=== PATIENT | male | born 1975 | race Caucasian/White ===

== ENCOUNTER 2025-07-25 08:59 | Emergency (ER) | payer BC, MEDICARE, SELFPAY ==
[2025-07-25 09:03] VITALS: PULSE 74; TEMP 36.6; O2SAT 100; BMI 32.9
[2025-07-25 09:04] VITALS: BP 141/98; PULSE 78; TEMP 36.6; O2SAT 100; BMI 27.7
--- NOTE | 2025-07-25 09:09 | CT_ITS ---
The [address] [address] Patient Name: KAYODE CHEUNG MRN: [id number] date: 1975 Sex: M Assigned Patient Location: ED.MAIN Current Patient Location: ED.MAIN Accession/Order Number: [id number] Exam Date: 07/25/2025 09:40 Report Date: 07/25/2025 10:30 At the request of: ROBINA APODACA MD Procedure: CT abdomen pelvis wo con CT abdomen pelvis wo con 07/25/2025 9:46 AM SIGNS AND SYMPTOMS: ^left flank pain, r/o stone TECHNIQUE: Multidetector ct axial images of the abdomen and pelvis were obtained without IV contrast. Multiplanar reformats were performed and reviewed to further define anatomy and possible pathology. CT was performed with one or more of the following dose reduction techniques: Automated exposure control, adjustment of the mA and/or kV according to patient size, or use of iterative reconstruction technique. COMPARISON: None. FINDINGS: Lower Chest: There is a small pericardial effusion. ABDOMEN: Liver: Within normal limits. Bile Ducts: Normal caliber. Gallbladder: No calcified gallstones. Normal caliber wall. Pancreas: Within normal limits. Spleen: Within normal limits. Adrenals: Within normal limits. Kidneys: Nonobstructing stones are noted in the renal collecting systems measuring 4 mm in greatest dimension on the left and 3 mm in greatest dimension on the right. There is mild left-sided hydronephrosis. Pelvis: Reproductive Organs: No pelvic masses. Ureters: There is a 4 mm proximal left ureteral stone. Bladder: Within normal limits. Bowel: There are uncomplicated diverticula. There is a normal appendix in the right lower quadrant. Mesenteric Lymph Nodes: No enlarged mesenteric lymph nodes. Peritoneum: No ascites or free air, no fluid collection. Vessels: Atherosclerotic changes are noted in the abdominal aorta. Retroperitoneum: Within normal limits. Abdominal Wall: Within normal limits. Bones: Degenerative changes are noted in the thoracic and lumbar spine, hips, and sacral iliac joints. CT/CT abdomen pelvis wo con IMPRESSION: There is a 4 mm proximal left ureteral stone contributing to mild left-sided hydronephrosis. Additional nonobstructing renal stones are noted as above. Uncomplicated colonic diverticula are noted. Impression dictated by: Rock Pedraza M.D. 07/25/2025 10:30 AM Dictation Location: [place] [address] Electronically authenticated by: [id number] Y Date: 07/25/2025 10:30
[2025-07-25] MEDS: MORPHINE SULFATE 4 MG/ML VIAL IV ×2 (09:14→09:25)
[2025-07-25 09:22] LABS: Hematocrit 45.4 % (42.0-54.0); Hemoglobin 15.9 g/dL (14.0-18.0); Immature Granulocytes Abs Auto 0.05 10^3/uL (0.00-0.03); Immature Granulocytes Pct Auto 0.4 % (0.0-0.5); Lymphocytes Absolute Auto 3.5 10^3/uL (1.2-3.8); Mean Corpuscular HGB Conc 35.0 g/dL (29.9-35.2); Mean Corpuscular Hemoglobin 31.4 pg (25.9-34.0); Mean Corpuscular Volume 89.5 fL (80.0-94.0); Platelet Count 305 10^3/uL (150-450); Red Blood Count 5.07 10^6/uL (4.70-6.10); White Blood Count 13.8 10^3/uL (4.0-11.0)
--- NOTE | 2025-07-25 09:24 | ED.GENADUL1 ---
HPI HPI - General Adult General Chief complaint: Abdominal Pain Stated complaint: L FLANK PAIN Time Seen by Provider: 07/25/25 09:09 Source: patient Mode of arrival: Wheelchair History of Present Illness HPI narrative: 50-year-old male presents for left flank pain. He had a small amount of pain last night and then it went away but when he woke up today he had severe pain and now the pain is in the flank and left lower quadrant of his abdomen. He has had kidney stones before and it feels similar. The pain is severe and he is nauseous. No gross hematuria or injury. Related Data Home Medications ?Medication ?Instructions ?Recorded ?Confirmed atorvastatin 20 mg tablet mg 07/25/25 brimonidine 0.2 % eye drops drp ophthalmic (eye) 07/25/25 dorzolamide 22.3 mg-timolol 6.8 ophthalmic (eye) 07/25/25 mg/mL eye drops gabapentin 400 mg capsule mg 07/25/25 galcanezumab-gnlm 120 mg/mL mg subcut 07/25/25 subcutaneous pen injector (Emgality Pen) latanoprost 0.005 % eye drops drp ophthalmic (eye) 07/25/25 lisinopril 2.5 mg tablet mg 07/25/25 metformin 500 mg tablet,extended mg PO 07/25/25 release 24 hr tirzepatide 5 mg/0.5 mL mg subcut 07/25/25 subcutaneous pen injector (Mounjaro) Previous Rx's ?Medication ?Instructions ?Recorded ondansetron 4 mg disintegrating 4 mg PO Q6H PRN nausea and 07/25/25 tablet vomiting #20 tabs oxycodone-acetaminophen 5 mg-325 1 tab PO Q6H PRN pain 5 days #20 07/25/25 mg tablet (Percocet) tabs tamsulosin 0.4 mg capsule (Flomax) 0.4 mg PO DAILY #7 caps 07/25/25 Allergies Allergy/AdvReac Type Severity Reaction Status Date / Time No Known Drug Allergies Allergy Verified 07/25/25 09:03 Opioid HPI Opioid Management Most Recent Opioid Data: Last DEC Pain Assessment Today, 09:14 Review of Systems ROS Narrative A ten point review of systems is negative except as noted above. Exam Narrative Exam Narrative: Nurses note and vital signs reviewed General:The patient appears uncomfortable. He is moving around on the cart. Skin:Warm, dry, no pallor noted.There is no rash noted. Head:Normocephalic, atraumatic Eye: Normal conjunctiva, no drainage Ears, Nose, Mouth, and Throat: oral mucosa is moist. Nares patent. Cardiovascular:Regular Rate and Rhythm Respiratory:Patient is in no distress, no accessory muscle use, lungs are clear to auscultation, no wheezing, rales or rhonchi Back:non-tender, no CVA tenderness bilaterally to percussion. GI: Soft and nontender Musculoskeletal: The patient has no evidence of calf tenderness, no pitting edema, symmetrical pulses noted bilaterally Neurological:A&O, normal speech Psychiatric:Cooperative Constitutional Vital Signs, click to edit/add: Last Vital Signs Temp 97.8 F 07/25/25 09:04 Pulse 78 07/25/25 09:04 Resp 22 H 07/25/25 09:04 BP 141/98 H 07/25/25 09:04 Pulse Ox 100 07/25/25 09:04 O2 Del Method Room Air 07/25/25 09:04 Course Vital Signs Vital signs: Vital Signs Temperature 97.8 F 07/25/25 09:03 Pulse Rate 74 07/25/25 09:03 Respiratory Rate 22 H 07/25/25 09:03 Pulse Oximetry 100 07/25/25 09:03 Temperature 97.8 F 07/25/25 09:04 Pulse Rate 78 07/25/25 09:04 Respiratory Rate 22 H 07/25/25 09:04 Blood Pressure 141/98 H 07/25/25 09:04 Pulse Oximetry 100 07/25/25 09:04 Oxygen Delivery Method Room Air 07/25/25 09:04 Medical Decision Making MDM Narrative Medical decision making narrative: 4 mm mid ureteral left kidney stone is identified. He is feeling improved after being given morphine and Dilaudid and Zofran. He is comfortable being discharged and he is discharged home on Percocet and Zofran and Flomax. He will follow-up with his urologist in his home area. Treatment diagnosis and follow-up were discussed with the patient. Differential Diagnosis Differential Diagnosis: Kidney stone, muscle strain, AAA Lab Data Lab results reviewed: Yes I reviewed the patient's lab results Labs: Lab Results 07/25/25 07/25/25 Range/Units 09:10 10:05 WBC 13.8 H (4.0-11.0) 10^3/uL RBC 5.07 (4.70-6.10) 10^6/uL Hgb 15.9 (14.0-18.0) g/dL Hct 45.4 (42.0-54.0) % MCV 89.5 (80.0-94.0) fL MCH 31.4 (25.9-34.0) pg MCHC 35.0 (29.9-35.2) g/dL RDW 12.7 (11.0-15.0) % Plt Count 305 (150-450) 10^3/uL MPV 10.2 (9.5-13.5) fL Neut % (Auto) 60.0 (43.0-75.0) % Lymph % (Auto) 25.3 (20.5-60.0) % Drew % (Auto) 9.8 (1.7-12.0) % Eos % (Auto) 3.7 (0.9-7.0) % Baso % (Auto) 0.8 (0.2-2.0) % Neut # (Auto) 8.3 H (1.4-6.5) 10^3/uL Lymph # (Auto) 3.5 (1.2-3.8) 10^3/uL Drew # (Auto) 1.4 H (0.3-0.8) 10^3/uL Eos # (Auto) 0.5 (0.0-0.7) 10^3/uL Baso # (Auto) 0.1 (0.0-0.1) 10^3/uL Abs Immat Gran (auto) 0.05 H (0.00-0.03) 10^3/uL Imm/Tot Granulo (auto) 0.4 (0.0-0.5) % Sodium 139 (136-145) mmol/L Potassium 4.3 (3.5-5.1) mmol/L Chloride 102 (98-107) mmol/L Carbon Dioxide 23.7 (21.0-32.0) mmol/L Anion Gap 17.6 BUN 11.0 (7.0-18.0) mg/dL Creatinine 1.26 (0.70-1.30) mg/dL Est GFR ( Amer) >60 (>=60 mL/min/1.73m^2) Est GFR (Non-Af Amer) >60 (>=60 mL/min/1.73m^2) BUN/Creatinine Ratio 8.7 Glucose 204 H (74-106) mg/dL Calcium 9.5 (8.5-10.1) mg/dL Urine Color Lt. yellow (YELLOW) Urine Clarity Clear (CLEAR) Urine pH 6.0 (5.0-9.0) Ur Specific [place] 1.020 (1.005-1.025) Urine Protein Negative (NEG/TRACE) mg/dL Urine Glucose (UA) Negative (NEGATIVE) mg/dL Urine Ketones 15 A (NEGATIVE) mg/dL Urine Occult Blood Large A (NEGATIVE) Urine Nitrite Negative (NEGATIVE) Urine Bilirubin Negative (NEGATIVE) Urine Urobilinogen 1.0 (0.2-1.0) EU/dL Ur Leukocyte Esterase Negative (NEGATIVE) Urine RBC 20-50 A (0-2) #/HPF Urine WBC 0-2 A (NONE SEEN) #/HPF Ur Squamous Epith Cells Rare (NONE/RARE) #/LPF Urine Crystals None seen (None Seen) #/HPF Urine Bacteria Trace A (NONE SEEN) #/HPF Urine Casts None seen (NONE SEEN) #/LPF Urine Mucus Trace A (NONE SEEN) Imaging Data CT scan - abdomen: Radiologist's impression: ITS Impressions Abdomen/Pelvis CT 07/25/25 09:09 IMPRESSION: There is a 4 mm proximal left ureteral stone contributing to mild left-sided hydronephrosis. Additional nonobstructing renal stones are noted as above. Uncomplicated colonic diverticula are noted. Impression dictated by: Rock Pedraza M.D. 07/25/2025 10:30 AM Dictation Location: [place] [address] Electronically authenticated by: [id number] Y Date: 07/25/2025 10:30 Discharge Plan Discharge Chief Complaint: Abdominal Pain Clinical Impression: Kidney stone Patient Disposition: Home, Self-Care Time of Disposition Decision: 11:30 Condition: Good Mode of Transportation: Private Vehicle Prescriptions / Home Meds: New tamsulosin [Flomax] 0.4 mg capsule 0.4 mg PO DAILY Qty: 7 0RF ondansetron 4 mg tablet,disintegrating 4 mg PO Q6H PRN (Reason: nausea and vomiting) Qty: 20 0RF oxycodone-acetaminophen [Percocet] 5-325 mg tablet 1 tab PO Q6H PRN (Reason: pain) 5 Days Qty: 20 0RF No Action latanoprost 0.005 % drops OPHTHALMIC (EYE) atorvastatin 20 mg tablet gabapentin 400 mg capsule brimonidine 0.2 % drops OPHTHALMIC (EYE) dorzolamide-timolol 22.3-6.8 mg/mL drops OPHTHALMIC (EYE) metformin 500 mg tablet extended release 24 hr PO lisinopril 2.5 mg tablet Emgality Pen 120 mg/mL pen injector SUBCUT Mounjaro 5 mg/0.5 mL pen injector SUBCUT Print Language: Slovak Referrals: Physician,Non-Staff, MD [Primary Care Provider] - 1 week
[2025-07-25] MEDS: HYDROMORPHONE HCL 1 MG/ML CARTRIDGE IV (09:34)
[2025-07-25 09:35] LABS: Anion Gap 17.6; Blood Urea Nitrogen 11.0 mg/dL (7.0-18.0); Calcium 9.5 mg/dL (8.5-10.1); Carbon Dioxide 23.7 mmol/L (21.0-32.0); Chloride 102 mmol/L (98-107); Estimated GFR (African America >60 (>=60 mL/min/1.73m^2); Estimated GFR (Non-African Ame >60 (>=60 mL/min/1.73m^2); Glucose 204 mg/dL (74-106); Potassium 4.3 mmol/L (3.5-5.1); Sodium 139 mmol/L (136-145)
[2025-07-25 10:16] LABS: Glucose Urine UA NEGATIVE (NEGATIVE)
[2025-07-25 10:24] LABS: Cast Seen? NONE SEEN #/LPF (NONE SEEN); Crystals Seen? None Seen #/HPF (None Seen)
== END 2025-07-25 11:43 | disposition home or self-care (01) ==
PROVIDERS: Emergency Provider Emergency Medicine
DX: N13.2 Hydronephrosis with renal and ureteral calculous obstruction (principal); Z87.442 Personal history of urinary calculi
CPT/HCPCS: 36415; 74176; 80048; 81001; 85025; 96374; 96375; 99284; 99285; J1171; J2270; J2405